=== PATIENT | female | born 1965 ===

== ENCOUNTER 2022-02-10 19:17 | Emergency (ER) | payer OTHER ==
[~2022-02-10] VITALS: Ht 170.2 cm; Wt 75.3 kg
[2022-02-10] MEDS ORDERED: NEURONTIN800 MG (19:59)
[2022-02-10] MEDS ORDERED: AMITRIPTYLINE100 MG (19:59)
[2022-02-10] MEDS ORDERED: SYNTHROID50 MCG (20:00)
[2022-02-10] MEDS ORDERED: CLONAZEPAM2 M1 (20:00)
== END 2022-02-11 00:07 | disposition home or self-care (01) ==
LOC: ER 19:17
DX: S19.9XXA Unspecified injury of neck, initial encounter (principal); S29.9XXA Unspecified injury of thorax, initial encounter; V43.52XA Car driver injured in collision with other type car in traffic accident, initial encounter; Y93.89 Activity, other specified; Y92.413 State road as the place of occurrence of the external cause; Z88.6 Allergy status to analgesic agent; Z91.013 Allergy to seafood